=== PATIENT | female | born 1955 | race Caucasian/White ===

== ENCOUNTER 2016-10-14 09:07 | Emergency (ER) | payer BC ==
[2016-10-14 10:39] VITALS: BP 126/75
--- NOTE | 2016-10-14 11:36 | UC ---
Abdominal Pain Female HPI - HPI Summary HPI Summary: Patient had diarrhea 2 days ago, since then has had some LLQ pain sometimes sharp over the past 2 days. no fever, no Hx of diverticulitis. no dysuria. - History of Current Complaint Chief Complaint: UCAbdominalPain Stated Complaint: LEFT GROIN PAIN Time Seen by Provider: 10/14/16 11:13 Hx Obtained From: Patient Hx Last Menstrual Period: years ?: No Onset/Duration: Sudden Onset, Lasting Days Timing: Constant Severity Initially: Mild Severity Currently: Moderate Pain Intensity: 6 Pain Scale Used: 0-10 Numeric Location: Discrete At: LLQ Radiates: No Character: Sharp Aggravating Factor(s): Nothing Alleviating Factor(s): Nothing Associated Signs and Symptoms: Positive: Negative - Risk Factors Ectopic Risk Factor: Negative Allergies/Adverse Reactions: Allergies Allergy/AdvReac Type Severity Reaction Status Date / Time No Known Allergies Allergy Verified 10/14/16 10:39 PMH/Surg Hx/FS Hx/Imm Hx Previously Healthy: Yes - Surgical History Surgical History: None - Family History Known Family History: Negative: Hypertension, Renal Disease - Social History Alcohol Use: Rare Substance Use Type: None Smoking Status (MU): Never Smoked Tobacco Review of Systems Constitutional: Negative Skin: Negative Eyes: Negative ENT: Negative Respiratory: Negative Cardiovascular: Negative Gastrointestinal: Abdominal Pain - LLQ, Diarrhea - 2 days ago, started the pain Genitourinary: Negative Motor: Negative Neurovascular: Negative Musculoskeletal: Negative Neurological: Negative Psychological: Negative All Other Systems Reviewed And Are Negative: Yes Physical Exam Triage Information Reviewed: Yes Appearance: Well-Appearing, Well-Nourished, Pain Distress Vital Signs: Initial Vital Signs Temp 97.4 F 10/14/16 10:33 Pulse 60 10/14/16 10:33 Resp 18 10/14/16 10:33 BP 126/75 10/14/16 10:33 Vital Signs Reviewed: Yes Eye Exam: Normal Eyes: Positive: Conjunctiva Clear ENT Exam: Normal ENT: Positive: Normal ENT inspection, Pharynx normal, TMs normal Dental Exam: Normal Neck exam: Normal Neck: Positive: Supple, Nontender, No Lymphadenopathy Respiratory Exam: Normal Respiratory: Positive: Chest non-tender, Lungs clear, Normal breath sounds Cardiovascular Exam: Normal Cardiovascular: Positive: RRR, No Murmur, Pulses Normal Abdominal Exam: Other - no distention, no guarding, no rebound tenderness, LLQ palpable tenderness, no masses noted, no hepato or spleenomegaly Bowel Sounds: Positive: Present Musculoskeletal Exam: Normal Musculoskeletal: Positive: Strength Intact, ROM Intact, No Edema Neurological Exam: Normal Neurological: Positive: Alert, Muscle Tone Normal Psychological Exam: Normal Skin Exam: Normal Abd Pain Female Course/Dx - Course Course Of Treatment: hx obtained, exam performed, cbc obtained, educateed patient on diverticulitis, warning signs to follow up on and the need for possible follow up by a GI specialist. treated with bentyl and augmentin for diverticulitis - Differential Dx/Diagnosis Differential Diagnosis: Appendicitis, Bowel Obstruction, Constipation, Diverticulitis, Irritable Bowel Syndrome, Pelvic Inflammatory Disease, Urinary Tract Infection Provider Diagnoses: LLQ pain, possible diverticulitis Discharge - Discharge Plan Condition: Stable Disposition: HOME Prescriptions: Dicyclomine HCl [Bentyl] 10 mg PO TID #21 cap Patient Education Materials: Diverticulitis (ED), Diverticulitis Diet (ED) Additional Instructions: Today we michael blood to rule out any infection. I have preescribed bently for the abdominal pain and cramping. I have also prescribed augmentin to be taken twice a day for 1 week for infection. We will call you to follow up on your blood work. If symptoms increase you need to follow up at an ER to allow for further testing. I have included the name of a GI specilalist for further follow up if necessary.
[2016-10-14 14:36] LABS: Hematocrit 43 % (35-47); Hemoglobin 14.1 g/dl (12.0-16.0); Mean Corpuscular HGB Conc 33 g/dl (31-36); Mean Corpuscular Hemoglobin 29 pg (27-31); Mean Corpuscular Volume 88 fL (80-97); Mean Platelet Volume 8 um3 (7.4-10.4); Red Blood Count 4.89 10^6/ul (4.0-5.4); Red Cell Distribution Width 14 % (10.5-15); White Blood Count 4.3 10^3/ul (3.5-10.8)
== END 2016-10-14 12:00 | disposition home or self-care (01) ==
LOC: UCCORT 09:07
DX: R10.32 Left lower quadrant pain (principal)
CPT/HCPCS: 36415; 85025; 87086; 99202; G0463